=== PATIENT | female | born 1960 | race Caucasian/White ===

== ENCOUNTER 2017-06-12 05:05 | Day surgery (SDC) | payer BC ==
[~2017-06-12] VITALS: Ht 170.2 cm; Wt 88.9 kg
[2017-06-12] MEDS ORDERED: OMEPRAZOLE40 MG PO (06:22)
[2017-06-12] MEDS ORDERED: PEPCID40 MG PO (06:23)
[2017-06-12] MEDS ORDERED: FISH OIL 1,0001 CA1 PO (06:23)
[2017-06-12] MEDS ORDERED: LIPITOR80 MG PO (06:23)
[2017-06-12] MEDS ORDERED: VITAMIN E1000 UNI1 PO (06:24)
[2017-06-12] MEDS ORDERED: MILK THISTLE140 MG PO (06:25)
[2017-06-12 06:34] VITALS: BP 151/86; Ht 170.2 cm; Wt 88.9 kg
== END 2017-06-12 11:00 | disposition home or self-care (01) ==
LOC: D.OPS 05:05
DX: D12.0 Benign neoplasm of cecum (principal); D12.5 Benign neoplasm of sigmoid colon; D12.6 Benign neoplasm of colon, unspecified; K63.5 Polyp of colon; Z01.812 Encounter for preprocedural laboratory examination